=== PATIENT | female | born 1970 | race Caucasian/White ===

== ENCOUNTER 2018-12-26 20:02 | Inpatient (IN) ==
[2018-12-26 20:45] LABS: Appearance Urine Clear (Clear); Bilirubin Urine Negative (Negative); Blood Urine Negative (Negative); Color Urine Yellow; Glucose Urine UA Negative (Negative); Ketones Urine Negative (Negative); Leukocyte Esterase Urine Negative (Negative); Nitrite Urine Negative (Negative); Protein Urine Negative (Negative); Specific Gravity Urine 1.013 (1.000-1.030); Urobilinogen Urine Negative (Negative)
[2018-12-26 21:09] LABS: Amphetamines+Metham, Urine Neg (Neg); Barbiturates, Urine Neg (Neg); Benzodiazepine, Urine Pos (Neg); Cocaine, Urine Neg (Neg); MDMA (Ecstacy), Urine Neg (Neg); Methadone, Urine Neg (Neg); Opiate, Urine Neg (Neg); Phencyclidine, Urine Neg (Neg)
[2018-12-26 21:37] LABS: Basophils # (auto) 0.01 K/uL (0-0.2); Basophils % (auto) 0.1 %; Eosinophils # (auto) 0.13 K/uL (0-0.5); Eosinophils % (auto) 1.7 %; Hemoglobin 13.1 g/dL (12.0-16.0); Immature Granulocytes # (auto) 0.01 K/uL (0.00-0.02); Immature Granulocytes % (auto) 0.1 %; Lymphocytes # (auto) 2.38 K/uL (1.2-3.4); Lymphocytes % (auto) 31.3 %; Mean Corpuscular Hgb Conc 33.6 g/dL (32-36); Mean Corpuscular Volume 93.8 fL (80-100); Mean Platelet Volume 9.8 fL (7.4-10.4); Monocytes % (auto) 5.3 %; Neutrophils # (auto) 4.67 K/uL (1.4-6.5); Neutrophils % (auto) 61.5 %; Platelet Count 246 K/uL (130-400); RDW Coefficient of Variation 12.6 % (11.5-14.5); RDW Standard Deviation 42.9 fL (36.4-46.3); Red Blood Count 4.16 M/uL (4.2-5.4)
[2018-12-26 22:00] LABS: Albumin Level 3.3 gm/dl (3.4-5.0); BUN Creatinine Ratio 21.9 (10-20); Calcium 8.9 mg/dl (8.5-10.1); Est GFR (African American) 92.6; Est GFR (Non-African American) 79.9; Potassium 4.2 mmol/L (3.5-5.1)
[2018-12-26 22:02] LABS: Salicylate < 1.7 mg/dl (2.8-20)
[2018-12-26 22:06] LABS: Acetaminophen < 2 ug/ml (10-30)
[2018-12-26 22:08] LABS: Pregnancy Test, Serum Negative (Negative)
[2018-12-26 22:11] LABS: Albumin Globulin Ratio 0.8 (0.9-2); Bilirubin,Total 0.2 mg/dl (0.2-1); Total Protein 7.3 gm/dl (6.4-8.2)
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
[2018-12-26] MEDS ORDERED: ALUMINUM/MAGNESIUM SUSP 30 ML UDC PO PRN (22:38)
[2018-12-26] MEDS ORDERED: ACETAMINOPHEN 325 MG TAB PO PRN (22:38)
[2018-12-26] MEDS ORDERED: BISMUTH SUBSALICYLATE PER ML OMNICELL CHARGE PO PRN (22:38)
[2018-12-26] MEDS ORDERED: SODIUM CHLORIDE 0.65% NA SOLN 45 ML (OCEAN) PRN (22:38)
[2018-12-26] MEDS ORDERED: MAGNESIUM HYDROXIDE SUSP 30 ML UDC PO PRN (22:38)
[2018-12-27] MEDS ORDERED: levETIRAcetam 500 MG TAB PO SCH (09:00)
[2018-12-27] MEDS: PROPRANOLOL HCL 10 MG TAB PO SCH ×2 (09:27→13:35)
[2018-12-27] MEDS: MULTIVITAMIN TAB PO SCH (09:28)
[2018-12-27] MEDS ORDERED: TRAZODONE HCL 50 MG TAB PO PRN (12:39)
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
[2018-12-27] MEDS ORDERED: PROPRANOLOL HCL 10 MG TAB PO PRN (14:02)
[2018-12-27] MEDS: LURASIDONE HCL 40 MG TAB PO SCH (17:34)
[2018-12-27] MEDS ORDERED: cloNIDine HCl 0.1 MG TAB PO SCH (21:00)
[2018-12-27] MEDS ORDERED: LURASIDONE HCL 40 MG TAB PO SCH (21:00)
[2018-12-27] MEDS ORDERED: TRAZODONE HCL 50 MG TAB PO SCH (21:00)
[2018-12-27] MEDS: TRAZODONE HCL 50 MG TAB PO SCH (21:01)
[2018-12-27] MEDS: ESCITALOPRAM OXALATE 20 MG TAB PO SCH (21:01)
[2018-12-27] MEDS ORDERED: cloNIDine HCl 0.1 MG TAB PO PRN (22:41)
[2018-12-28 07:05] LABS: Glucose Fasting 85 mg/dl (70-99)
[2018-12-28 07:11] LABS: Chol HDL Ratio 3; Cholesterol 213 mg/dl (0-200); HDL Cholesterol 63 mg/dl; LDL Cholesterol Calculated 120 mg/dl; Triglycerides 151 mg/dl (0-150); VLDL Cholesterol 30 mg/dl
[2018-12-28] MEDS: MULTIVITAMIN TAB PO SCH (09:21)
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
[2018-12-28] MEDS: LURASIDONE HCL 40 MG TAB PO SCH (17:55)
[2018-12-28] MEDS: ESCITALOPRAM OXALATE 20 MG TAB PO SCH (21:14)
[2018-12-28] MEDS: TRAZODONE HCL 50 MG TAB PO SCH (21:14)
[2018-12-29] MEDS: MULTIVITAMIN TAB PO SCH (08:31)
[2018-12-29] MEDS ORDERED: DESTROY THIS MEDICATION ONE ×2 (09:30→09:59)
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
[2018-12-31 01:06] LABS: 7-Aminoclonaz, Confirm 32 NG/ML (CUTOFF=25); Hydro-Alp Ur, GC/MS NEGATIVE NG/ML (CUTOFF=25); Hydroxyethylflurazepam, Conf NEGATIVE NG/ML (CUTOFF=50); Hydroxytriazolam NEGATIVE NG/ML (CUTOFF=50); Lorazepam, Ur GC/MS NEGATIVE NG/ML (CUTOFF=50); Nordiazepam, Confirm 163 NG/ML (CUTOFF=50); Oxazepam Ur, GC/MS 195 NG/ML (CUTOFF=50); Temazepam, Confirm 236 NG/ML (CUTOFF=50)
== END 2018-12-29 11:45 | disposition home or self-care (01) | DRG 880 ==
LOC: ED 20:02 → 3S 23:42